=== PATIENT | male | born 1990 ===

== ENCOUNTER 2023-11-14 15:52 | Outpatient (REF) | payer MEDICAID, SELFPAY ==
[2023-11-14 18:11] LABS: MANUAL DIFF FLAG NO
[2023-11-14 18:28] LABS: Basophils Percent Auto 0.9 % (0-2); Eosinophils Absolute Auto 0.1 X10*3/uL (0.0-0.4); Eosinophils Percent Auto 1.1 % (0-4); Hematocrit 42.9 % (42.0-52.0); Hemoglobin 14.8 g/dl (14.0-18.0); Lymphocytes Absolute Auto 1.7 X10*3/uL (1.2-4.9); Lymphocytes Percent Auto 37.8 % (20-40); Mean Corpuscular HGB Conc 34.5 g/dl (31.0-36.0); Mean Corpuscular Hemoglobin 30.5 pg (27.0-33.0); Mean Corpuscular Volume 88.3 fL (80.0-98.0); Mean Platelet Volume 9.8 fL (9.4-12.4); Monocytes Absolute Auto 0.4 X10*3/uL (0.1-1.2); Monocytes Percent Auto 9.1 % (2-11); Neutrophils Absolute Auto 2.4 x10*3/uL (2.0-8.3); Neutrophils Percent Auto 51.1 % (45-73); Platelet Count 280 X10*3/uL (160-400); Red Blood Count 4.86 X10*6/uL (4.60-5.80); Red Cell Distribution Width 11.9 % (11.0-16.0); White Blood Count 4.6 X10*3/uL (4.8-10.8)
[2023-11-14 18:30] LABS: Anion Gap 12 (12-20); Blood Urea Nitrogen 11 mg/dL (9-16); Calcium 9.3 mg/dL (8.4-10.2); Carbon Dioxide 28 mmol/L (22-29); Chloride 103 mmol/L (96-108); Estimated Glomerular Filt Rate > 60; Glucose Random 89 mg/dL (60-115); Potassium 3.7 mmol/L (3.3-5.1); Sodium 139 mmol/L (135-145)
== END 2023-11-14 15:53 | disposition home or self-care (01) ==
LOC: HO.HHCL 15:52
PROVIDERS: Visit Provider Internal Medicine Geriatric Medicine
DX: Z00.00 Encounter for general adult medical examination without abnormal findings (principal)
CPT/HCPCS: 36415; 80048; 85025

== ENCOUNTER → 2024-10-17 12:28 | Outpatient (REF) | payer MEDICAID, SELFPAY ==
--- NOTE | 2024-10-17 12:42 | CA_ITS ---
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 - The left ventricular systolic function is low normal. The visually estimated ejection fraction is between 50-55%. - No obvious valvular pathology seen on this study. - History of coarctation repair, but site not visualized in this study. Findings Procedure Information The quality of the study was technically difficult. The study quality is limited by an uncooperative patient. Left Ventricle Normal left ventricular cavity size. There is normal left ventricular wall thickness. The left ventricular systolic function is low normal. The visually estimated ejection fraction is between 50-55%. Diastolic function is normal for age. Right Ventricle Normal right ventricular cavity size. There is mildly decreased right ventricular systolic function. Aortic Valve There is a normal trileaflet aortic valve. There is no aortic valve stenosis. There is trace (trivial) aortic valve regurgitation. Mitral Valve The mitral valve appears normal. There is trace mitral valve regurgitation. There is no mitral valve stenosis. Pulmonic Valve The pulmonic valve is likely normal. Tricuspid Valve There is mild tricuspid valve regurgitation. There is no evidence of pulmonary hypertension. Great Vessels The asc aorta and aortic arch are normal in size. History of coarctation repair, but site not visualized in this study. Venous The inferior vena cava was not well visualized. The inferior vena cava is normal in size. Pericardium/Pleural There is no evidence of pericardial effusion. Prior Study Comparison No prior study available for comparison. Recommendations, Care & Conclusions No obvious valvular pathology seen on this study. Measurements 2D Linear Measurements IVSd: 0.91 0.6-0.9/0.6-1.0 cm LVIDd: 3.24 3.9-5.3/4.2-5.9 cm LVIDd Index: 2.17 2.4-3.2/2.2-3.1 cm/m2 LVIDs: 1.44 2.0-3.6 cm LVPWd: 1.00 0.7-1.1 cm LA Diam: 3.50 2.7-3.8/3.0-4.0 cm LAIDs Index: 2.35 1.5-2.3 cm/m2 LV Mass: 106.85 67-162/88-224 g LV Mass Index: 71.71 43-95/49-115 g/m2 LVOT Diam: 2.00 3.0+(-)1.3 cm 2D Systolic Function EF 4C: 48.80 >55% EF 2C: 43.90 >55% EF BiP: 45.80 >55% Mitral Valve MV Pk E: 0.53 MV PK A: 0.79 MV Decel Time: 381.00 E/A: 0.70 E'Lateral: 10.10 E'Medial: 7.51 E/E' Med: 7.00 E/E' Lat: 5.20 PHT: 112.00 MVA PHT: 1.96 Decel Sullivan: 1.38 Aortic Valve AoV Pk Scott: 1.37 AoV Mn Scott: 0.88 AoV VTI: 0.27 AoV Pk Grad: 8.00 Aov Mn Grad: 4.00 MARSHA Cont.VTI: 2.69 LVOT LVOT Pk Scott: 1.15 LVOT Mn Scott: 0.72 LVOT VTI: 0.23 LVOT Pk Grad: 5.00 LVOT Mn Grad: 3.00 LVOT Diam: 2.00 LVOT Area: 3.14 Diastolic Function MV Pk E: 0.53 MV Pk A: 0.79 E/A: 0.70 E'Medial: 7.51 E/E' Med: 7.00 E' Laterial: 10.10 E/E' Lat: 5.20 Right Ventricle TAPSE (mm): 15.90 TVS' Scott: 7.07 Tricuspid Valve TR Pk Scott: 1.91 TR Pk Grad: 15.00 Great Vessels Aorta Sinus of Valsalva: 3.00 2.0-3.5 cm Ao Asc: 2.50 2.1-3.4 cm Ao Arch: 2.60 Pulmonary Valve PV Pk Scott: 0.81 Peak PV Grad: 3.00 Updated in Other Vendor System with Status of Final Maximilian Lloyd MD electronically signed on 10/18/2024 11:52:02 AM with status of Final
--- OUTSIDE RECORDS SUMMARY | 2024-10-17 14:34 | XMS_ITS | Encounter Summary ---
Author Organization [facility] Address [address] [place] [address] Care Team Providers Care Electrician Sound Name Role Phone Name, Ian PELAEZ Primary Care Provider [phone] Reason for Visit * Reason Onset Date Comments Paperwork/Forms 08/29/2023 Encounter Details Date Type Department Care Team ([facility] st Contact Info) Description 08/29/2023 Telephone [facility] [address] [place] [address] Name, MD Ian [address] [place] [address] Paperwork/Forms Social History Tobacco Use Types Packs/Day Years Used Date Smoking Tobacco: Never Smokeless Tobacco: Never Alcohol Use Standard Drinks/Week Comments Never 0 (1 standard drink = 0.6 oz pur e alcohol) Depression Answer Date Recorded Patient Health Questionnaire-9 Score 0 01/11/2023 Housing Stability Answer Date Recorded What is your housing situation today? I have saryadilene savage 03/09/[address] you li ve. Do you have problems with any of the following? None of the above 03/09/2023 Food Insecurity Answer Date Recorded Within the past 12 months, y ou worried that your food would run out before you got money to buy more: Never True 03/09/2023 Within the past 12 months,th e food you bought just didn't last and you didn't have enough money to get more: Never True Transportation Answer Date Recorded In the past 12 months, has l ack of transportation kept you from medical appts, meetings, work or from getting things needed for daily living? No 03/09/2023 Utilities Answer Date Recorded In the past 12 months, has t he [employer], gas, oil or water [employer] threatened to shut off services in your home? No 03/09/2023 Depression Answer Date Recorded Patient Health Questionnaire-2 Score 0 01/11/2023 Sex and Gender Information Value Date Recorded Sex Assigned at Male 03/14/2022 10:17 AM EDT Legal Sex Male 10:17 AM EDT Gender Identity Choose not to disclose 10:17 AM EDT Sexual Orientation Choose not to disclose 2021 10:17 AM EDT documented as of this encounter Miscellaneous Notes * Telephone Encounter - Joann Kumar RN - 08/30/2023 1:47 PM EDT T/C to Day program for below message, medication list was faxed on [phone], confirmation received. Advised once [facility] receive med. Orders to be signed, will fax back. RN verbally agreed and understood. * Telephone Encounter - Ethan Juárez - 08/29/2023 9:59 AM EDT Tc from Dede the RN at the patients Day program requesting the Medication list as well as medication orders to be signed and faxed back to her states was transferred to Medical records and was hung up on any questions please call Dede at [phone] documented in this encounter Plan of Treatment Upcoming Encounters Date Type Department Care Team (Late st Contact Info) Description 12/02/2024 2:45 PM EDT Office Visit [facility] [address] [place] [address] Name, MD Ian [address] [place] [address] documented as of this encounter Visit Diagnoses Not on filedocumented in this encounter Additional Health Concerns Assessment Noted Time PHQ-9 Depression Total Score: 0 01/12/20 23 11:11 AM EDT documented as of this encounter Care Teams Electrician Sound Relationship Specialty Start Date End Date Name, MD Ian [address] [place] [address] PCP - General Family Medicine 12/28/16 documented as of this encounter
== END ==
LOC: HO.CARD 12:28
PROVIDERS: PCP Internal Medicine Geriatric Medicine; Visit Provider Internal Medicine Geriatric Medicine
DX: Q25.1 Coarctation of aorta (principal)
CPT/HCPCS: 93306

== ENCOUNTER → 2024-10-17 12:42 | Outpatient (BNV) | payer MEDICAID, SELFPAY | PROVIDERS: PCP Internal Medicine Geriatric Medicine; Visit Provider Internal Medicine | DX: Q25.1 Coarctation of aorta (principal) | CPT/HCPCS: 93306 ==